=== PATIENT | male | born 1955 | race Caucasian/White ===

== ENCOUNTER → 2018-03-03 | Outpatient (CLI) | payer MEDICARE, BC ==
[~2018-03-03] MED LIST: CLIN30GE15 TP; HYDR30CR10 TP; TRIA10PO9 MC; TRIA15CR40 TP
== END ==
LOC: LAB 11:58
PROVIDERS: ATTEND Nurse Practitioner
DX: C44.320 Squamous cell carcinoma of skin of unspecified parts of face (principal)
CPT/HCPCS: 88305